=== PATIENT | male | born 1985 | race Caucasian/White ===

== ENCOUNTER 2023-05-17 13:31 | Emergency (ER) | payer OTHER, SELFPAY ==
[2023-05-17 13:41] VITALS: BP 132/84; PULSE 79; RESP 20; TEMP 36.6; O2SAT 98; BMI 28.2
--- NOTE | 2023-05-17 13:43 | US_ITS ---
[address] [address] Patient Name: DEBBIE NORIEGA MRN: [id number] date: 1985 Sex: M Assigned Patient Location: ED.MAIN Current Patient Location: ER Accession/Order Number: [id number] Exam Date: 05/17/2023 13:45 Report Date: 05/17/2023 14:33 At the request of: KEVEN FERNÁNDEZ Procedure: US venous doppler LE RT EXAMINATION: US venous doppler LE RT HISTORY: right leg pain COMPARISON: No relevant comparison available. FINDINGS: REGION: Right lower extremity THROMBI: None. COMPRESSIBILITY: Normal compressibility. FLOW: Normal waveform and antegrade flow between 5 and 20 cm/s. OTHER: None. IMPRESSION: 1. No deep vein thrombus within the right lower extremity. Electronically authenticated by: AYLA SALOMON Date: 05/17/2023 14:33
--- NOTE | 2023-05-17 13:45 | ED.EXTPRO1 ---
HPI - Extremity Problem General Chief complaint: Extremity Problem, Nontraumatic Stated complaint: LOWER EXTREMITY PAIN RIGHT LEG Time Seen by Provider: 05/17/23 13:37 Source: patient Mode of arrival: Wheelchair History of Present Illness HPI Narrative: patient is a 38-year-old male who presents to the emergency Department for pain radiating from the right hip into the anterior right leg and into the groin. States symptoms have been present for the last six days. They have been seen both at [facility] and [facility] for the symptoms over the last six days. Patient has had a CT of the leg and hip and has been prescribed naproxen and Flexeril. He states he continues to have pain and nobody knows why. He presents to the Emergency Room with concerned that he is having difficulty ambulating. He has had no swelling, redness, wounds or drainage of the leg. He denies any mechanism of injury or trauma. He has chronic pain to the low back. Related Data Previous Rx's Medication Instructions Recorded gabapentin 100 mg capsule 100 mg PO Q8H 5 days #15 caps 05/17/23 hydrocodone 5 mg-acetaminophen 300 1 tab PO Q6H PRN pain #8 tabs 05/17/23 mg tablet orphenadrine citrate 100 mg 100 mg PO BID PRN muscle pain #14 05/17/23 tablet,extended release tabs prednisone 20 mg tablet 60 mg PO DAILY #12 tabs 05/17/23 Allergies Allergy/AdvReac Type Severity Reaction Status Date / Time No Known Drug Allergies Allergy Verified 05/17/23 13:44 Review of Systems ROS Constitutional Denies: fever or chills Ears, nose, mouth, and throat Denies: throat pain or neck pain Cardiovascular Denies: chest pain Respiratory Denies: shortness of breath or cough Gastrointestinal Denies: abdominal pain, nausea or vomiting Musculoskeletal Reports: back pain, extremity pain and limited range of motion; Denies: neck pain or extremity swelling Integumentary/Breast Denies: rash Neurological Denies: headache Exam Narrative Exam Narrative: Gen.: Awake, alert, in no distress Head: Normocephalic, atraumatic ENT: Moist mucous membranes Respiratory: No respiratory distress Extremities: Moves extremities equally, pain with flexion and extension at the right hip, normal dorsiflexion and plantarflexion of the right foot. Diffuse tenderness of the right anterior tibia, right anterior thigh. No swelling, redness, wounds or drainage noted. No swelling or redness over the right knee joint. No bony point tenderness or obvious deformity. No internal or external rotation noted. Patient is able to transfer himself and move the right lower extremity without weakness. Psych: Normal mood and affect Neuro: No focal neuro deficit Skin: Warm, dry, intact Constitutional Vital Signs - 24 hr 05/17/23 13:41 Temperature 98 F Pulse Rate [Monitor] 79 Respiratory Rate 20 Blood Pressure [Right Arm] 132/84 H Pulse Oximetry 98 Oxygen Delivery Method Room Air Course Vital Signs Vital signs: Vital Signs Temperature 98 F 05/17/23 13:41 Pulse Rate 79 05/17/23 13:41 Respiratory Rate 20 05/17/23 13:41 Blood Pressure 132/84 H 05/17/23 13:41 Pulse Oximetry 98 05/17/23 13:41 Oxygen Delivery Method Room Air 05/17/23 13:41 Temperature 98 F 05/17/23 13:41 Pulse Rate 79 05/17/23 13:41 Respiratory Rate 20 05/17/23 13:41 Blood Pressure 132/84 H 05/17/23 13:41 Pulse Oximetry 98 05/17/23 13:41 Oxygen Delivery Method Room Air 05/17/23 13:41 MDM - Extremity (Nontraumatic) MDM Narrative Medical decision making narrative: exam is consistent with lumbar radiculopathy, patient with no focal neuro deficits. An ultrasound was performed to rule out deep vein thrombosis, patient has already had CT imaging added outside facility. He had no falls or injuries. No peripheral paresthesia. He will be treated with a short course of steroid taper, he is encouraged to watch his blood sugars at home as he has diabetes. He is given Norflex, gabapentin, prednisone. Follow-up with primary care and return to the emergency department if symptoms change or worsen. he is given a referral for spinal surgery in [place], he was reevaluated by attending physician prior to discharge. Medical Records Attestation: I reviewed the patient's medical records. Imaging Data Venous US: Attestation: I have reviewed the pertinent imaging results. Radiologist's impression: Procedure: US venous doppler LE RT EXAMINATION: US venous doppler LE RT HISTORY: right leg pain COMPARISON: No relevant comparison available. FINDINGS: REGION: Right lower extremity THROMBI: None. COMPRESSIBILITY: Normal compressibility. FLOW: Normal waveform and antegrade flow between 5 and 20 cm/s. OTHER: None. IMPRESSION: 1. No deep vein thrombus within the right lower extremity. Electronically authenticated by: AYLA SALOMON Date: 05/17/2023 14:33 Discharge Plan Discharge Chief Complaint: Extremity Problem, Nontraumatic Clinical Impression: Lumbar radiculopathy, right Patient Disposition: Home, Self-Care Time of Disposition Decision: 14:37 Condition: Good Prescriptions / Home Meds: New gabapentin 100 mg capsule 100 mg PO Q8H 5 Days Qty: 15 0RF orphenadrine citrate 100 mg tablet extended release 100 mg PO BID PRN (Reason: muscle pain) Qty: 14 0RF prednisone 20 mg tablet 60 mg PO DAILY Qty: 12 0RF Rx Instructions: 3 tabs daily for 2 days, then 2 tabs daily for 2 days, then 1 tab daily for 2 days hydrocodone-acetaminophen 5-300 mg tablet 1 tab PO Q6H PRN (Reason: pain) Qty: 8 0RF Instructions: Lumbar Radiculopathy (ED) Additional Instructions: Follow up with your doctor and Dr. Guzman at [facility] as needed Stand Alone Forms: Portal Instructions Referrals: Physician,Non-Staff, MD [Primary Care Provider] - 1 week
[2023-05-17] MEDS: KETOROLAC TROMETHAMINE 60 MG/2 ML VIAL IM (13:55)
[2023-05-17] MEDS: ORPHENADRINE 60 MG/ 2 ML VIAL IM (13:56)
== END 2023-05-17 14:52 | disposition home or self-care (01) ==
PROVIDERS: Emergency Provider Emergency Medicine Emergency Medical Services
DX: M54.16 Radiculopathy, lumbar region (principal); G89.29 Other chronic pain; M54.50 Low back pain, unspecified; Z79.899 Other long term (current) drug therapy
CPT/HCPCS: 93971; 96372; 99284

== ENCOUNTER 2023-05-21 18:15 | Emergency (ER) | payer OTHER, SELFPAY ==
[2023-05-21 18:19] VITALS: BP 118/76; PULSE 93; RESP 18; TEMP 36.8; O2SAT 98; BMI 38.2
[2023-05-21] MEDS: KETOROLAC TROMETHAMINE 60 MG/2 ML VIAL IM (18:52)
[2023-05-21] MEDS: ORPHENADRINE 60 MG/ 2 ML VIAL IM (18:53)
--- NOTE | 2023-05-21 19:02 | ED.GENADUL1 ---
HPI - General Adult General Chief complaint: Back Pain/Injury Stated complaint: back pain Time Seen by Provider: 05/21/23 18:36 Source: patient Mode of arrival: Wheelchair Limitations: no limitations History of Present Illness HPI narrative: 38-year-old male returns to emergency room with continued right lower lumbar pain with radiation of the right lower extremity. Patient was evaluated Dr. diego office. Patient states she is to be getting an MRI of his back. dr diego did offer him pain management as well. Patient denies any new numbness tingling loss of bowel or bladder function.She states she took all his medications including his steroids and ran out of them today. He returns here for pain. he ambulated into the emergency room. Related Data Home Medications Medication Instructions Recorded Confirmed atorvastatin 10 mg tablet 10 mg PO DAILY 05/21/23 05/21/23 insulin aspart U-100 100 unit/mL 1 sliding scale dose subcut DAILY 05/21/23 05/21/23 (3 mL) subcutaneous pen (Novolog FlexPen U-100 Insulin aspart) insulin glargine 100 unit/mL (3 30 unit subcut DAILY 05/21/23 05/21/23 mL) subcutaneous pen (Lantus Solostar U-100 Insulin) lisinopril 10 mg tablet 10 mg PO DAILY 05/21/23 05/21/23 metformin 500 mg tablet 500 mg PO DAILY 05/21/23 05/21/23 semaglutide 2 mg/dose (8 mg/3 mL) 2 mg subcut DAILY 05/21/23 05/21/23 subcutaneous pen injector (Ozempic) Allergies Allergy/AdvReac Type Severity Reaction Status Date / Time No Known Drug Allergies Allergy Verified 05/17/23 13:44 Review of Systems ROS Narrative All Systems are negative except as noted/marked.All systems reviewed and otherwise negative PFSH PFS Social History Smoking status: Former smoker Exam Narrative Exam Narrative: Patient is a All Systems are negative except as noted/marked.All systems reviewed and otherwise negative Nurses note and vital signs reviewed and patient is not hypoxic. General: The patient appears well and in no apparent distress. Patient is resting comfortably on cart. Skin: Warm, dry, no pallor noted. There is no rash noted. Head: Normocephalic, atraumatic Eye: Normal conjunctiva, no drainage, EOMI. PERRL Ears, Nose, Mouth, and Throat: oral mucosa is moist. Nares patent. Mouth without vesicles. Ear canals patent. Tm's without Erythema Cardiovascular: Regular Rate and Rhythm Respiratory: Patient is in no distress, no accessory muscle use, lungs are clear to auscultation, no wheezing, rales or rhonchi Back: non-tender, no CVA tenderness bilaterally to percussion. GI: Normal bowel sounds, no tenderness to palpation, no masses appreciated. No rebound, guarding, or rigidity noted. Musculoskeletal:Moves extremities equally, pain with flexion and extension at the right hip, normal dorsiflexion and plantarflexion of the right foot. Diffuse tenderness of the right anterior tibia, right anterior thigh. No swelling, redness, wounds or drainage noted. No swelling or redness over the right knee joint. No bony point tenderness or obvious deformity. No internal or external rotation noted. Patient is able to transfer himself and move the right lower extremity without weakness.The patient has no evidence of calf tenderness, no pitting edema, symmetrical pulses noted bilaterally Neurological: A&O x4, normal speech Psychiatric: Cooperative Constitutional Vital Signs, click to edit/add: Last Vital Signs Temp 98.3 F 05/21/23 18:19 Pulse 93 H 05/21/23 18:19 Resp 18 05/21/23 18:19 BP 118/76 05/21/23 18:19 Pulse Ox 98 05/21/23 18:19 O2 Del Method Room Air 05/21/23 18:57 Course Vital Signs Vital signs: Vital Signs Temperature 98.3 F 05/21/23 18:19 Pulse Rate 93 H 05/21/23 18:19 Respiratory Rate 18 05/21/23 18:19 Blood Pressure 118/76 05/21/23 18:19 Pulse Oximetry 98 05/21/23 18:19 Oxygen Delivery Method Room Air 05/21/23 18:19 Temperature 98.3 F 05/21/23 18:19 Pulse Rate 93 H 05/21/23 18:19 Respiratory Rate 18 05/21/23 18:19 Blood Pressure 118/76 05/21/23 18:19 Pulse Oximetry 98 05/21/23 18:19 Oxygen Delivery Method Room Air 05/21/23 18:57 Medical Decision Making MDM Narrative Medical decision making narrative: he presents here with a chief complaint of exacerbation of chronic back pain. Patient is awaiting for MRI and pain management referral per orthopedic doctor.Patient's had no new injury or trauma since his previous visit here on May 17. He did see Dr. Carter earlier this week. Patient has no new numbness tingling loss of bowel or bladder function. Medicated here Toradol and Norflex. Previous medications he had he had run out of taken them all. Patient encouraged to stretch ice and rest. Follow-up with pain management. Patient verbalizes understanding agrees care. She'll given a small prescription of [place] here oarrs report showed a level of eighty Has had previous ultrasound venous Doppler as well as CT scans other facilities which were all unremarkable no acute pathology Discharge Plan Discharge Chief Complaint: Back Pain/Injury Clinical Impression: Sciatica, Lumbar radiculopathy, right Patient Disposition: Home, Self-Care Time of Disposition Decision: 19:19 Condition: Good Prescriptions / Home Meds: No Action atorvastatin 10 mg tablet 10 mg PO DAILY insulin aspart U-100 [Novolog FlexPen U-100 Insulin] 100 unit/mL (3 mL) insulin pen 1 sliding scale dose SUBCUT DAILY insulin glargine [Lantus Solostar U-100 Insulin] 100 unit/mL (3 mL) insulin pen 30 unit SUBCUT DAILY Ozempic 2 mg/dose (8 mg/3 mL) pen injector 2 mg SUBCUT DAILY lisinopril 10 mg tablet 10 mg PO DAILY metformin 500 mg tablet 500 mg PO DAILY Instructions: Sciatica (ED), Lumbar Radiculopathy (ED), Lower Back Exercises (ED) Stand Alone Forms: Portal Instructions Referrals: Physician,Non-Staff, MD [Primary Care Provider] - 1 week
== END 2023-05-21 19:32 | disposition home or self-care (01) ==
PROVIDERS: Emergency Provider Emergency Medicine
DX: M54.41 Lumbago with sciatica, right side (principal); M54.16 Radiculopathy, lumbar region; Z79.899 Other long term (current) drug therapy; Z79.84 Long term (current) use of oral hypoglycemic drugs; Z79.4 Long term (current) use of insulin; Z87.891 Personal history of nicotine dependence
CPT/HCPCS: 96372; 96374; 99284

== ENCOUNTER 2024-02-24 18:08 | Emergency (ER) | payer OTHER, SELFPAY ==
[2024-02-24 18:13] VITALS: BP 144/100; PULSE 91; TEMP 36.8; O2SAT 96; BMI 32.0
--- NOTE | 2024-02-24 18:23 | CT_ITS ---
The [address] [address] Patient Name: DEBBIE NORIEGA MRN: [id number] date: 1985 Sex: M Assigned Patient Location: ER Current Patient Location: Accession/Order Number: [id number] Exam Date: 02/24/2024 18:31 Report Date: 02/24/2024 19:00 At the request of: KEVEN FERNÁNDEZ Procedure: CT head/brain wo con CT head/brain wo con, 02/24/2024 6:31 PM EDT INDICATION: Headache, fall COMPARISON: There is no appropriate prior study for comparison. TECHNIQUE: Axial CT images of the brain from skull base to vertex, including portions of the face and sinuses, were obtained without contrast . Multiplanar reformatted images were generated and reviewed as needed. Dose reduction techniques were achieved by using automated exposure control and/or adjustment of mA and/or kV according to patient size and/or use of iterative reconstruction technique. FINDINGS: The cerebral sulci as well as ventricular system are appropriate for age. There is no intracranial mass, mass effect, midline shift, intra or extra-axial fluid collection or hemorrhage. The visualized portions of orbits, mastoid air cells as well as paranasal sinuses are unremarkable. There is no suspicious osteolytic or osteoblastic lesion. CT/CT head/brain wo con IMPRESSION: No acute intracranial process is noted. Electronically authenticated by: RAQUEL HAYNES Date: 02/24/2024 19:00
--- NOTE | 2024-02-24 18:23 | ED.HEATRA1 ---
HPI HPI - Head Injury General Chief complaint: Head Injury Stated complaint: Headache from fall Time Seen by Provider: 02/24/24 18:16 Source: patient Mode of arrival: walk-in History of Present Illness HPI Narrative: Patient is a 39-year-old male who presents to the emergency department for head injury with headache. Patient states he was getting up in the middle of the night 3 days ago when his knees gave out, this happens from time to time with his lumbar radiculopathy and he is due to have surgery on his low back for this. He states he fell back hitting the left posterior aspect of the head. He states on waking 3 days ago from sleep, he had a severe headache that he describes as a migraine although he has no history of migraines. He had no loss of consciousness has had no vomiting. He reports pain in the left frontal and temporal skull. He has had no visual changes, new peripheral paresthesias, neck pain. He is on no blood thinners. He drove himself to this emergency department, he went to the [facility]'s emergency room immediately prior and the wait time was too long so he came to this emergency department instead. Related Data Home Medications ?Medication ?Instructions ?Recorded ?Confirmed insulin aspart U-100 100 unit/mL 1 sliding scale dose subcut DAILY 05/21/23 02/24/24 (3 mL) subcutaneous pen (Novolog FlexPen U-100 Insulin aspart) insulin glargine 100 unit/mL (3 30 unit subcut DAILY 05/21/23 02/24/24 mL) subcutaneous pen (Lantus Solostar U-100 Insulin) lisinopril 10 mg tablet 10 mg PO DAILY 05/21/23 02/24/24 metformin 500 mg tablet 500 mg PO DAILY 05/21/23 02/24/24 semaglutide 2 mg/dose (8 mg/3 mL) 2 mg subcut DAILY 05/21/23 02/24/24 subcutaneous pen injector (Ozempic) atorvastatin 40 mg tablet 40 mg PO DAILY 02/24/24 02/24/24 gabapentin 300 mg capsule 600 mg PO QAM 02/24/24 02/24/24 gabapentin 600 mg tablet 600 mg PO QPM 02/24/24 02/24/24 pregabalin 100 mg capsule 100 mg PO TID 02/24/24 02/24/24 quetiapine 300 mg tablet 300 mg PO QPM 02/24/24 02/24/24 ropinirole 2 mg tablet 2 mg PO TID 02/24/24 02/24/24 Previous Rx's ?Medication ?Instructions ?Recorded [id number] 1 cap PO Q6H PRN headache #10 caps 02/24/24 50 mg-300 mg-40 mg capsule (Fioricet) ketorolac 10 mg tablet 10 mg PO TID PRN pain #10 tabs 02/24/24 metoclopramide HCl 10 mg tablet 10 mg PO Q6H PRN nausea and 02/24/24 (Reglan) vomiting #12 tabs Allergies Allergy/AdvReac Type Severity Reaction Status Date / Time No Known Drug Allergies Allergy Verified 05/17/23 13:44 Opioid HPI Opioid Management Most Recent Pain and Opioid Data: Last Pain Scale 5 02/24/24 19:03 Last ED Pain Assessment 02/24/24 19:03 Last MAR Pain Assessment 02/24/24 18:41 Review of Systems ROS Constitutional Denies: fever or chills Eyes Denies: change in vision or blurry vision Ears, nose, mouth, and throat Denies: neck pain Respiratory Denies: shortness of breath Gastrointestinal Reports: nausea; Denies: vomiting Integumentary/Breast Denies: rash Neurological Reports: headache; Denies: numbness in extremities Hematologic/Lymphatic Denies: easy bruising or easy bleeding PFSH PFSH Social History Smoking status: Former smoker Exam Narrative Exam Narrative: Gen.: Awake, alert, in no distress Head: Normocephalic, atraumatic ENT: Moist mucous membranes; No swelling or ecchymosis of the scalp, no Archer sign or raccoon eyes, no dental injury; C-spine is nontender with full range of motion Respiratory: No respiratory distress Extremities: Moves extremities equally, no injuries noted Psych: Normal mood and affect Neuro: No focal neuro deficit Skin: Warm, dry, intact Constitutional Vital Signs, click to edit/add: Last Vital Signs Temp 98.3 F 02/24/24 18:13 Pulse 74 02/24/24 19:02 Resp 16 02/24/24 19:02 BP 170/100 H 02/24/24 19:02 Pulse Ox 94 L 02/24/24 19:02 O2 Del Method Room Air 02/24/24 19:02 Course Vital Signs Vital signs: Vital Signs Temperature 98.3 F 02/24/24 18:13 Pulse Rate 91 H 02/24/24 18:13 Respiratory Rate 16 02/24/24 18:13 Blood Pressure 144/100 H 02/24/24 18:13 Pulse Oximetry 96 02/24/24 18:13 Oxygen Delivery Method Room Air 02/24/24 18:13 Temperature 98.3 F 02/24/24 18:13 Pulse Rate 74 02/24/24 19:02 Respiratory Rate 16 02/24/24 19:02 Blood Pressure 170/100 H 02/24/24 19:02 Pulse Oximetry 94 L 02/24/24 19:02 Oxygen Delivery Method Room Air 02/24/24 19:02 MDM - Head Injury MDM Narrative Medical decision making narrative: CT of the brain is unremarkable, patient medicated for pain with Toradol and Reglan. He will be discharged home with a prescription for Toradol and Reglan. Follow-up with PCP and return to the emergency department if symptoms change or worsen. He has a normal neuroexam with no focal neurodeficits in the ER. On my reevaluation, patient is lying comfortably in bed with no photophobia looking at his cell phone. He declined a work note. Fioricet, Toradol and Reglan sent to the pharmacy. Medical Records Attestation: I reviewed the patient's medical records. Imaging Data CT scan - head: Attestation: I have reviewed the pertinent imaging results. Radiologist's impression: ITS Impressions Head CT 02/24/24 18:23 IMPRESSION: No acute intracranial process is noted. Electronically authenticated by: RAQUEL HAYNES Date: 02/24/2024 19:00 Discharge Plan Discharge Stand Alone Forms: Portal Instructions Chief Complaint: Head Injury Clinical Impression: Closed head injury, Headache Patient Disposition: Home, Self-Care Time of Disposition Decision: 19:13 Condition: Good Prescriptions / Home Meds: New ketorolac 10 mg tablet 10 mg PO TID PRN (Reason: pain) Qty: 10 0RF metoclopramide HCl [Reglan] 10 mg tablet 10 mg PO Q6H PRN (Reason: nausea and vomiting) Qty: 12 0RF [id number] [Fioricet] 50-300-40 mg capsule 1 cap PO Q6H PRN (Reason: headache) Qty: 10 0RF Rx Instructions: DX: R51 No Action insulin aspart U-100 [Novolog FlexPen U-100 Insulin] 100 unit/mL (3 mL) insulin pen 1 sliding scale dose SUBCUT DAILY insulin glargine [Lantus Solostar U-100 Insulin] 100 unit/mL (3 mL) insulin pen 30 unit SUBCUT DAILY Ozempic 2 mg/dose (8 mg/3 mL) pen injector 2 mg SUBCUT DAILY lisinopril 10 mg tablet 10 mg PO DAILY metformin 500 mg tablet 500 mg PO DAILY gabapentin 300 mg capsule 600 mg PO QAM gabapentin 600 mg tablet 600 mg PO QPM atorvastatin 40 mg tablet 40 mg PO DAILY pregabalin 100 mg capsule 100 mg PO TID quetiapine 300 mg tablet 300 mg PO QPM ropinirole 2 mg tablet 2 mg PO TID Print Language: Ukrainian Instructions: Head Injury (ED), Acute Headache (ED) Referrals: ANITA ULRICH [Primary Care Provider] - 1 week
[2024-02-24] MEDS: METOCLOPRAMIDE HCL 10 MG/10 ML SOLUTION REGLAN PO (18:41)
[2024-02-24] MEDS: KETOROLAC TROMETHAMINE 10 MG TABLET PO (18:41)
[2024-02-24 19:02] VITALS: BP 170/100; PULSE 74; O2SAT 94
== END 2024-02-24 19:28 | disposition home or self-care (01) ==
PROVIDERS: Emergency Provider Emergency Medicine Emergency Medical Services; PCP Family Medicine
DX: R51.9 Headache, unspecified (principal); S09.8XXA Other specified injuries of head, initial encounter; W19.XXXA Unspecified fall, initial encounter; Z87.891 Personal history of nicotine dependence; Z79.4 Long term (current) use of insulin; Z79.84 Long term (current) use of oral hypoglycemic drugs; Z79.899 Other long term (current) drug therapy
CPT/HCPCS: 70450; 99284

== ENCOUNTER 2025-01-23 15:30 | Emergency (ER) | payer OTHER, SELFPAY ==
[2025-01-23 15:38] VITALS: BP 148/109; PULSE 84; TEMP 36.6; O2SAT 97; BMI 37.1
--- NOTE | 2025-01-23 15:45 | ED_ITS ---
HPI HPI - General Adult General Chief complaint: Shortness of Breath/Dyspnea Stated complaint: chest pains, influenza A Time Seen by Provider: 01/23/25 15:35 Source: patient Mode of arrival: Wheelchair Limitations: no limitations History of Present Illness HPI narrative: 40 male presents because he does not feel well. He complains of chest pain and his whole body hurting. A few days ago he was diagnosed with influenza. He was not feeling well today so he called a squad and the squad took him to another hospital. The wait was too long for him so he left there and somebody else brou ght him here. No hemoptysis vomiting or diarrhea complaints Related Data Home Medications ?Medication ?Instructions ?Recorded ?Confirmed insulin glargine 100 unit/mL (3 30 unit subcut DAILY 05/21/23 01/23/25 mL) subcutaneous pen (Lantus Solostar U-100 Insulin) quetiapine 300 mg tablet 300 mg PO QPM 02/24/24 01/23/25 benzonatate 100 mg capsule 100 mg PO Q8H PRN cough 01/23/25 01/23/25 blood-glucose sensor (Dexcom G6 01/23/25 01/23/25 Sensor device) blood-glucose transmitter (Dexcom 01/23/25 01/23/25 G6 Transmitter device) insulin lispro 100 unit/mL subcut 01/23/25 subcutaneous pen ondansetron 4 mg disintegrating 4 mg PO Q8H PRN nausea and vomiting 01/23/25 01/23/25 tablet propranolol 20 mg tablet 20 mg PO .QHS 01/23/25 01/23/25 quetiapine 50 mg tablet 50 mg PO DAILY 01/23/25 01/23/25 trazodone 100 mg tablet 100 mg PO .QHS PRN sleep 01/23/25 01/23/25 Allergies Allergy/AdvReac Type Severity Reaction Status Date / Time No Known Drug Allergies Allergy Verified 05/17/23 13:44 Opioid HPI Opioid Management Most Recent Opioid Data: Last Pain Scale 5 02/24/24 19:03 02/24/24 Review of Systems ROS Narrative A ten point review of systems is negative except as noted above. PFSH PFSH Social History Smoking status: Former smoker Little interest or pleasure in doing things: not at all Feeling down, depressed, or hopeless: not at all Exam Narrative Exam Narrative: Nurses note and vital signs reviewed and patient is not hypoxic. General: The patient appears uncomfortable and is in no acute distress from a respiratory standpoint Skin: Warm, dry, no pallor noted. There is no rash noted. Head: Normocephalic, atraumatic Eye: Normal conjunctiva, no drainage Ears, Nose, Mouth, and Throat: oral mucosa is moist. Nares patent. Cardiovascular: Regular Rate and Rhythm, not tachycardic Respiratory: Patient is in no distress, no accessory muscle use, lungs are clear to auscultation, no wheezing, rales or rhonchi Back: non-tender GI: Soft and nontender Musculoskeletal: The patient has no evidence of calf tenderness, no pitting edema, symmetrical pulses noted bilaterally Neurological: A&O, normal speech Psychiatric: Cooperative Constitutional Vital Signs, click to edit/add: Last Vital Signs Temp 98 F 01/23/25 15:38 Pulse 76 01/23/25 16:42 Resp 20 01/23/25 16:42 BP 156/94 H 01/23/25 16:42 Pulse Ox 97 01/23/25 15:38 Course Vital Signs Vital signs: Vital Signs Temperature 98 F 01/23/25 15:38 Pulse Rate 84 01/23/25 15:38 Respiratory Rate 21 H 01/23/25 15:38 Blood Pressure 148/109 H 01/23/25 15:38 Pulse Oximetry 97 01/23/25 15:38 Temperature 98 F 01/23/25 15:38 Pulse Rate 76 01/23/25 16:42 Respiratory Rate 20 01/23/25 16:42 Blood Pressure 156/94 H 01/23/25 16:42 Pulse Oximetry 97 01/23/25 15:38 Medical Decision Making [facility] Narrative Medical decision making narrative: The patient is dehydrated and was given 2 L of IV fluid. He is able to be di scharged home in the care of his sister. Chest x-ray was negative. Treatment diagnosis and follow-up were discussed with the patient. Differential Diagnosis Differential Diagnosis: Dehydration, pneumonia Lab Data Lab results reviewed: Yes I reviewed the patient's lab results Labs: Lab Results 01/23/25 Range/Units 15:55 WBC 8.6 (4.0-11.0) 10^3/uL RBC 5.84 (4.70-6.10) 10^6/uL Hgb 17.0 (14.0-18.0) g/dL Hct 49.7 (42.0-54.0) % MCV 85.1 (80.0-94.0) fL MCH 29.1 (25.9-34.0) pg MCHC 34.2 (29.9-35.2) g/dL RDW 12.5 (11.0-15.0) % Plt Count 308 (150-450) 10^3/uL MPV 10.1 (9.5-13.5) fL Neut % (Auto) 76.5 H (43.0-75.0) % Lymph % (Auto) 9.9 L (20.5-60.0) % [place] % (Auto) 13.3 H (1.7-12.0) % Eos % (Auto) 0.0 L (0.9-7.0) % Baso % (Auto) 0.1 L (0.2-2.0) % Neut # (Auto) 6.6 H (1.4-6.5) 10^3/uL Lymph # (Auto) 0.9 L (1.2-3.8) 10^3/uL [place] # (Auto) 1.1 H (0.3-0.8) 10^3/uL Eos # (Auto) 0.0 (0.0-0.7) 10^3/uL Baso # (Auto) 0.0 (0.0-0.1) 10^3/uL Abs Immat Gran (auto) 0.02 (0.00-0.03) 10^3/uL Imm/Tot Granulo (auto) 0.2 (0.0-0.5) % Sodium 128 L (136-145) mmol/L Potassium 5.8 H (3.5-5.1) mmol/L Chloride 94 L (98-107) mmol/L Carbon Dioxide 15.3 L (21.0-32.0) mmol/L Anion Gap 24.5 BUN 34.0 H (7.0-18.0) mg/dL Creatinine 2.07 H (0.70-1.30) mg/dL Est GFR ( Amer) 43 L (>=60 mL/min/1.73m^2) Est GFR (Non-Af Amer) 36 L (>=60 mL/min/1.73m^2) BUN/Creatinine Ratio 16.4 Glucose 243 H (74-106) mg/dL Calcium 9.5 (8.5-10.1) mg/dL Troponin I High Sens <4.0 L (4.0-76.1) pg/mL Imaging Data Chest x-ray: Radiologist's impression: No acute cardiopulmonary process ECG Data Attestation: I personally reviewed and interpreted this ECG as follows: (EKG on my interpretation shows normal sinus rhythm with a rate of 84 no acute change) Discharge Plan Discharge Chief Complaint: Shortness of Breath/Dyspnea Clinical Impression: Dehydration Patient Disposition: Home, Self-Care Time of Disposition Decision: 18:07 Condition: Good Mode of Transportation: Private Vehicle Prescriptions / Home Meds: No Action benzonatate 100 mg capsule 100 mg PO Q8H PRN (Reason: cough) propranolol 20 mg tablet 20 mg PO .QHS ondansetron 4 mg tablet,disintegrating 4 mg PO Q8H PRN (Reason: nausea and vomiting) insulin lispro 100 unit/mL insulin pen SUBCUT quetiapine 50 mg tablet 50 mg PO DAILY (DME) Dexcom G6 Sensor Device MISCELLANEOUS (DME) Dexcom G6 Transmitter Device MISCELLANEOUS trazodone 100 mg tablet 100 mg PO .QHS PRN (Reason: sleep) insulin glargine [Lantus Solostar U-100 Insulin] 100 unit/mL (3 mL) insulin pen 30 unit SUBCUT DAILY quetiapine 300 mg tablet 300 mg PO QPM Print Language: Pakistani Instructions: Dehydration (ED) Referrals: ANITA ULRICH [Primary Care Provider] - 1 week
--- NOTE | 2025-01-23 15:45 | ECG_ITS ---
[facility] Test Date: 2025-01-23 Pat Name: DEBBIE NORIEGA Department: Room: - Gender: Male Medical Leader: : 1985 Requested By: [id number] Order Number: [id number] Reading MD: ELSIE HARMON M.D. Measurements Intervals [place] Rate: 84 P: -8 OK: 156 QRS: -2 QRSD: 88 T: 37 QT: 358 QTc: 399 Interpretive Statements 1100 Sinus rhythm 9110 normal ECG No previous ECG available for comparison Electronically Signed On 01-23-2025 20:47:59 EDT by ELSIE HARMON M.D.
[2025-01-23 15:53] VITALS: BP 156/94; PULSE 86
[2025-01-23] MEDS: 0.9 % SODIUM CHLORIDE 1,000 ML 1000 ML IV ×2 (16:00→16:56)
[2025-01-23 16:08] LABS: Basophils Percent Auto 0.1 % (0.2-2.0); Hematocrit 49.7 % (42.0-54.0); Immature Granulocytes Abs Auto 0.02 10^3/uL (0.00-0.03); Immature Granulocytes Pct Auto 0.2 % (0.0-0.5); Lymphocytes Absolute Auto 0.9 10^3/uL (1.2-3.8); Lymphocytes Percent Auto 9.9 % (20.5-60.0); Mean Corpuscular HGB Conc 34.2 g/dL (29.9-35.2); Mean Corpuscular Hemoglobin 29.1 pg (25.9-34.0); Mean Corpuscular Volume 85.1 fL (80.0-94.0); Mean Platelet Volume 10.1 fL (9.5-13.5); Monocytes Absolute Auto 1.1 10^3/uL (0.3-0.8); Monocytes Percent Auto 13.3 % (1.7-12.0); Neutrophils Absolute Auto 6.6 10^3/uL (1.4-6.5); Neutrophils Percent Auto 76.5 % (43.0-75.0); Platelet Count 308 10^3/uL (150-450); Red Blood Count 5.84 10^6/uL (4.70-6.10); Red Cell Distribution Width 12.5 % (11.0-15.0); White Blood Count 8.6 10^3/uL (4.0-11.0)
[2025-01-23 16:28] LABS: Anion Gap 24.5; BUN Creatinine Ratio 16.4; Calcium 9.5 mg/dL (8.5-10.1); Carbon Dioxide 15.3 mmol/L (21.0-32.0); Chloride 94 mmol/L (98-107); Estimated GFR (African America 43 (>=60 mL/min/1.73m^2); Estimated GFR (Non-African Ame 36 (>=60 mL/min/1.73m^2); Glucose 243 mg/dL (74-106); Potassium 5.8 mmol/L (3.5-5.1); Sodium 128 mmol/L (136-145); Troponin I High Sensitivity <4.0 pg/mL (4.0-76.1)
[2025-01-23 16:42] VITALS: BP 156/94; PULSE 76
[2025-01-23] MEDS: KETOROLAC TROMETHAMINE 30 MG/ML VIAL IVP (16:54)
== END 2025-01-23 18:32 | disposition home or self-care (01) ==
PROVIDERS: Emergency Provider Emergency Medicine; PCP Family Medicine
DX: E86.0 Dehydration (principal); Z87.891 Personal history of nicotine dependence; R07.9 Chest pain, unspecified
CPT/HCPCS: 36415; 71045; 80048; 84484; 85025; 93005; 96361; 96374; 99285; J1885